=== PATIENT | male | born 1980 | race Two or more races ===

== ENCOUNTER 2021-02-17 12:16 | Emergency (ER) | payer OTHER ==
[~2021-02-17] VITALS: Ht 170.2 cm; Wt 86.2 kg
[2021-02-17] MEDS ORDERED: CARVEDILOL25 M1 PO (12:38)
[2021-02-17] MEDS ORDERED: NIFEDIPINE20 MG (12:38)
[2021-02-17] MEDS ORDERED: COZAAR50 MG PO (12:38)
[2021-02-17] MEDS ORDERED: TAMS0.4C PO (20:10)
== END 2021-02-17 20:51 | disposition home or self-care (01) ==
LOC: ER 12:16 → EDBD 12:33 → ER 20:51
DX: N20.0 Calculus of kidney (principal); N39.0 Urinary tract infection, site not specified